=== PATIENT | male | born 1965 | race Caucasian/White ===

== ENCOUNTER 2017-08-26 06:57 | Emergency (ER) | payer OTHER ==
[~2017-08-26] VITALS: Ht 175.3 cm; Wt 136.5 kg
[~2017-08-26 06:57] MED LIST: AMLO5TAB96 PO; CYCL-36 PO; LISI40TA PO; LORC10TA PO; MEDR4PAK3 PO
[2017-08-26 07:00] VITALS: BP 162/92; PULSE 66; RESP 12; TEMP 98.7; O2SAT 95
[2017-08-26] MEDS ORDERED: LIDOCAINE 2%/EPINEPHrine 1:100,000 20ML MDV NERV BLOCK ONE (07:45)
--- NOTE | 2017-08-26 08:17 | PD ---
HPI Chief Complaint: Lump, Cyst, Hernia Time Seen by Provider: 07:33 Travel History International Travel<30 days: No Contact w/Intl Traveler<30days: No Traveled to known affect area: No History of Present Illness HPI 51-year-old male presents to emergency Department with tender erythematous draining cyst of the upper central back for the past several days. Patient has history of sebaceous cysts in the past. She denies fever, chills , or other symptoms. His pain is currently 8 out of 10. It has been draining some purulent bloody drainage. He is allergic to penicillin. [facility] Past Medical History High Cholesterol: Yes Diminished Hearing: No Hypertension: Yes Past Surgical History Other Surgery: Yes (SEPTOPLASTY? FOR SLEEP APNEA) Social History Alcohol Use: Yes (OCCASIONALLY BUT RARE) Tobacco Use: No Substance Use: No Allergies-Medications (Allergen,Severity, Reaction): Coded Allergies: penicillin G (Unverified Allergy, Severe, RASH, HIVES, 07/03/17) Reported Meds & Prescriptions Reported Meds & Active Scripts Active Medrol Dosepak (Methylprednisolone) 4 Mg Richy 4 Mg PO DIRECTED TAKE DIRECTED Flexeril (Cyclobenzaprine HCl) 10 Mg Tab 10 Mg PO TID Lorcet 10/650 (Acetaminophen/Hydrocodone Bitart) Tab 0.5-1 Tab PO Q4-6H PRN PAIN FOR PAIN Reported Norvasc (Amlodipine Besylate) 5 Mg Tab 5 Mg PO DAILY Prinivil (Lisinopril) 40 Mg Tab 40 Mg PO DAILY Review of Systems Except as stated in HPI: all other systems reviewed are Neg General / Constitutional: No: Fever Eyes: No: Visual changes HENT: No: Headaches Cardiovascular: No: Chest Pain or Discomfort Respiratory: No: Shortness of Breath Gastrointestinal: No: Abdominal Pain Genitourinary: No: Dysuria Musculoskeletal: No: Pain Skin: No Rash Neurologic: No: Weakness Psychiatric: No: Depression Endocrine: No: Polydipsia Hematologic/Lymphatic: No: Easy Bruising Physical Exam Narrative GENERAL: The patient. No acute distress. SKIN: Warm and dry. Patient as well as-sized erythematous raised cyst to the upper middle back with active purulent drainage. There is induration but no streaking. HEAD: Atraumatic. Normocephalic. EYES: Pupils equal and round. No scleral icterus. No injection or drainage. ENT: No nasal bleeding or discharge. Mucous membranes pink and moist. Pharynx clear. Airway is patent NECK: Trachea midline. Supple nontender. CARDIOVASCULAR: Regular rate and rhythm. RESPIRATORY: No accessory muscle use. Clear to auscultation. Breath sounds equal bilaterally. MUSCULOSKELETAL: Extremities without clubbing, cyanosis, or edema. No obvious deformities. NEUROLOGICAL: Awake and alert. No obvious cranial nerve deficits. Motor grossly within normal limits. Five out of 5 muscle strength in the arms and legs. Normal speech. PSYCHIATRIC: Appropriate mood and affect; insight and judgment normal. Data Data Last Documented VS Vital Signs Date Time Temp Pulse Resp B/P (MAP) Pulse Ox O2 Delivery O2 Flow Rate FiO2 08/26/17 07:00 98.7 66 12 162/92 (115) 95 Orders Orders Lidocai-Epi 2%-1:100,000 Inj (Xylocaine- (08/26/17 07:45) MDM Medical Decision Making Medical Screen Exam Complete: Yes Emergency Medical Condition: Yes Differential Diagnosis Cellulitis. Sebaceous cyst. Abscess. Narrative Course I&D of abscess is performed. Packing is placed. Wound care is discussed the patient's return and 48 hours for packing removal. No antibiotics are felt warranted at this time. Patient can return sooner with any worsening symptoms. Diagnosis Primary Impression: Sebaceous cyst Additional Impression: Abscess Referrals: Primary Care Physician Patient Instructions: Abscess Incision and Drainage (DC), Cyst (ED), General Instructions Additional Instructions: I&D of abscess is performed. Packing is placed. Wound care is discussed the patient's return and 48 hours for packing removal. No antibiotics are felt warranted at this time. Patient can return sooner with any worsening symptoms. Med/Other Pt SpecificInfo: Prescription(s) given Disposition: DISCHARGE HOME Condition: Stable Remy Quiles Aug 26, 2017 07:36
== END 2017-08-26 08:04 | disposition home or self-care (01) ==
LOC: NEPK 06:57
DX: L72.3 Sebaceous cyst (principal); L02.212 Cutaneous abscess of back [any part, except buttock and flank]; I10 Essential (primary) hypertension; E78.00 Pure hypercholesterolemia, unspecified
CPT/HCPCS: 10061

== ENCOUNTER 2017-08-28 11:08 | Emergency (ER) | payer OTHER ==
[~2017-08-28] VITALS: Ht 175.3 cm; Wt 140.0 kg
[2017-08-28 11:09] VITALS: BP 190/103; PULSE 67; RESP 16; TEMP 97.9; O2SAT 96
[2017-08-28] MEDS ORDERED: CLIN1CAP5 PO (12:01)
--- NOTE | 2017-08-28 12:01 | PD ---
HPI Chief Complaint: Wound/Suture/Staple Re-Check Time Seen by Provider: 11:53 Travel History International Travel<30 days: No Contact w/Intl Traveler<30days: No Traveled to known affect area: No History of Present Illness HPI 51-year-old male presents to emergency department requesting abscess packing removal. Packing was placed on Sunday. Denies fever, vomiting. Says he was not given antibiotics. He been taking Tylenol for pain. Reports history of multiple abscesses to his back in the past. Says he's been told he has a sweat gland problem. Symptoms are mild in severity. Has allergies to penicillin. History of hypertension and says he forgot to take his blood pressure medication this morning. Denies headache, chest pain, shortness of breath, abdominal pain, vomiting, change in vision. Patient at the [facility]. Has no medical complaints. No other modifying factors or associated signs and symptoms. PFSH Past Medical History High Cholesterol: Yes Diminished Hearing: No Hypertension: Yes Past Surgical History Other Surgery: Yes (SEPTOPLASTY? FOR SLEEP APNEA) Social History Alcohol Use: Yes (OCCASIONALLY BUT RARE) Tobacco Use: No Substance Use: No Allergies-Medications (Allergen,Severity, Reaction): Coded Allergies: penicillin G (Unverified Allergy, Severe, RASH, HIVES, 08/28/17) Reported Meds & Prescriptions Reported Meds & Active Scripts Active Clindamycin (Clindamycin HCl) 150 Mg Cap 300 Mg PO Q6H 10 Days Medrol Dosepak (Methylprednisolone) 4 Mg Richy 4 Mg PO DIRECTED TAKE DIRECTED Flexeril (Cyclobenzaprine HCl) 10 Mg Tab 10 Mg PO TID Lorcet 10/650 (Acetaminophen/Hydrocodone Bitart) Tab 0.5-1 Tab PO Q4-6H PRN PAIN FOR PAIN Reported Norvasc (Amlodipine Besylate) 5 Mg Tab 5 Mg PO DAILY Prinivil 40 mg (Lisinopril) 40 Mg Tab 40 Mg PO DAILY Review of Systems Except as stated in HPI: all other systems reviewed are Neg Physical Exam Narrative GENERAL: Well-nourished, well-developed male patient, in no acute distress; afebrile, nontoxic-appearing SKIN: There is an indurated area to the mid upper back which measures about 1.5 cm in diameter; previously incised and drained with iodoform packing intact; minimal amount purulent Drainage. There is a zone of inflammation around it but no lymphangitis. HEAD: Atraumatic. Normocephalic. EYES: Pupils equal and round. No scleral icterus. No injection or drainage. ENT: Mucosa pink and moist. Airway patent. NECK: Trachea midline. CARDIOVASCULAR: Regular rate. RESPIRATORY: No accessory muscle use. GASTROINTESTINAL: Obese. MUSCULOSKELETAL: No obvious deformities. No clubbing. No cyanosis. No edema. NEUROLOGICAL: Awake and alert. Oriented 3. No obvious cranial nerve deficits. Motor grossly within normal limits. Normal speech. PSYCHIATRIC: Appropriate mood and affect; insight and judgment normal. Data Data Last Documented VS Vital Signs Date Time Temp Pulse Resp B/P (MAP) Pulse Ox O2 Delivery O2 Flow Rate FiO2 08/28/17 11:09 97.9 67 16 190/103 (132) 96 Room Air Orders Orders Ed Discharge Order (08/28/17 12:01) Wound Culture And Gram Stain (08/28/17 12:01) MDM Medical Decision Making Medical Screen Exam Complete: Yes Emergency Medical Condition: Yes Medical Record Reviewed: Yes Differential Diagnosis Encounter for abscess packing removal, wound recheck, medical clearance Narrative Course 51-year-old female presents for encounter for abscess packing removal. Pack removed. Patient tolerated well. The patient was seen on Sunday for incision and drainage of sebaceous cyst and was not placed on antibiotics and a wound culture was not done. I will obtain a wound culture and place the patient on antibiotics. Patient has history of hypertension and forgot to take his blood pressure medication before leaving the house this morning. His blood pressure is elevated in the ER and he is asymptomatic. He verbalizes he will take his blood pressure medication upon arriving home. Clindamycin prescribed for home. Instructed patient to follow up with primary care provider. Patient verbalizes understanding and agreement with treatment plan. Patient is medically cleared and stable for discharge. Discussed reasons to return to the emergency department. Patient agrees with treatment plan. The patients vital signs are stable and the patient is stable for outpatient follow-up and treatment. Patient discharged home, stable and in no acute distress. Diagnosis Primary Impression: Encounter for abscess packing removal Referrals: Community Service Director Primary Care Physician Patient Instructions: Abscess (ED), Abscess Follow-up (ED), General Instructions Additional Instructions: Complete full course of antibiotics Warm compresses to the affected area Keep area clean and dry Ibuprofen or Tylenol as directed and as needed for pain and inflammation Follow-up with primary care provider Return to emergency department immediately with worsening of symptoms Med/Other Pt SpecificInfo: Prescription(s) given Scripts Clindamycin (Clindamycin) 150 Mg Cap 300 MG PO Q6H for Infection for 10 Days, #80 CAP 0 Refills Prov: Junie Mcpherson 08/28/17 Disposition: 01 DISCHARGE HOME Condition: Stable Junie Mcpherson Aug 28, 2017 12:01
[2017-08-28 12:06] VITALS: BP 188/94
== END 2017-08-28 12:41 | disposition home or self-care (01) ==
LOC: NEPK 11:08
DX: L02.212 Cutaneous abscess of back [any part, except buttock and flank] (principal); B95.7 Other staphylococcus as the cause of diseases classified elsewhere; B96.89 Other specified bacterial agents as the cause of diseases classified elsewhere; I10 Essential (primary) hypertension; Z48.01 Encounter for change or removal of surgical wound dressing
CPT/HCPCS: 87070; 87077; 87186; 99281

== ENCOUNTER 2017-09-11 08:14 | Emergency (ER) | payer OTHER ==
[~2017-09-11 08:14] MED LIST changes: +CLIN1CAP5 PO
[2017-09-11 08:18] VITALS: BP 175/81; PULSE 59; RESP 16; TEMP 97.8; O2SAT 95
[2017-09-11] MEDS ORDERED: AMLO5TAB2 PO (08:44)
[2017-09-11] MEDS ORDERED: SIMV5TAB3 PO (08:44)
[2017-09-11] MEDS ORDERED: LISI40TA PO (08:44)
--- NOTE | 2017-09-11 08:56 | PD ---
HPI Chief Complaint: Pain: Acute or Chronic Time Seen by Provider: 08:49 Travel History International Travel<30 days: No Contact w/Intl Traveler<30days: No Traveled to known affect area: No History of Present Illness HPI 51-year-old male presents to the emergency department complaint of left knee pain since yesterday after his knee just gave out while he was walking. He did not fall. Denies paresthesias, loss of sensation to the affected extremity. Reports decreased range of motion of the left knee. Is unable to ambulate on the affected extremity. Denies fever, vomiting. Has taken a leftover hydrocodone last night for pain. Took ibuprofen this morning for pain. Has been using crutches for support. Has tried icing the knee. Pain is aggravated with extension of the knee, movement and ambulation. Pain is to the lateral, medial, posterior aspect. Describes pain as an intense pain. Rates the pain 9/ 10. Is a patient of the ID clinic. Allergies to penicillin. Has no other medical complaints. No other modifying factors or associated signs and symptoms. History Past Medical Histgory Tetanus Vaccination: > 5 Years Social History Alcohol Use: Yes (OCCASIONALLY BUT RARE) Tobacco Use: No Allergies-Medications (Allergen,Severity, Reaction): Coded Allergies: penicillin G (Unverified Allergy, Severe, RASH, HIVES, 08/28/17) Reported Meds & Prescriptions Reported Meds & Active Scripts Active Clindamycin (Clindamycin HCl) 150 Mg Cap 300 Mg PO Q6H 10 Days Reported Lisinopril 40 Mg Tab 40 Mg PO DAILY Simvastatin 5 Mg Tab 5 Mg PO DAILY Amlodipine (Amlodipine Besylate) 5 Mg Tab 5 Mg PO DAILY Review of Systems Except as stated in HPI: all other systems reviewed are Neg Physical Exam Narrative GENERAL: Well-nourished, well-developed male patient, in no acute distress; afebrile, nontoxic-appearing SKIN: Warm and dry. HEAD: Atraumatic. Normocephalic. EYES: Pupils equal and round. No scleral icterus. No injection or drainage. ENT: Mucosa pink and moist. Airway patent. NECK: Trachea midline. CARDIOVASCULAR: Regular rate. RESPIRATORY: No accessory muscle use. GASTROINTESTINAL: Obese. MUSCULOSKELETAL: Left knee mildly edematous, nonerythematous, and without ecchymosis; full range of motion and flexion to 90; decreased active extension ; point tenderness to the lateral, medial, posterior aspect; joint stable with negative drawer test; no obvious deformity. Left Lower extremity is supple and non-tense with 2+ pedal pulse and sensory intact and without erythema or edema. Unable to assess ambulation. No cyanosis. No clubbing. No edema. NEUROLOGICAL: Awake and alert. Oriented 3. No obvious cranial nerve deficits. Motor grossly within normal limits. Normal speech. PSYCHIATRIC: Appropriate mood and affect; insight and judgment normal. Data Data Last Documented VS Vital Signs Date Time Temp Pulse Resp B/P (MAP) Pulse Ox O2 Delivery O2 Flow Rate FiO2 09/11/17 08:18 97.8 59 16 175/81 (112) 95 MDM Medical Screen Exam Complete: Yes Emergency Medical Condition: No Differential Diagnosis Knee sprain, ligament tear, meniscal tear, less likely fracture or dislocation Narrative Course 51-year-old male with left knee pain after his knee gave out yesterday while walking. Denies falling. I offered to x-ray the knee, but the patient is requesting an MRI, and declined the x-ray at this time. I do not feel an x-ray is necessary, as I do not suspect fracture or dislocation, but it was offered to the patient. She has crutches for support. Instructed patient to use knee brace for support. Vital signs are stable and the patient is stable for outpatient follow-up and treatment. The patient has no urgent or emergent medical complaints. There is no emergent or urgent medical need at this time. I instructed the patient to follow up with their primary care provider. A medical screening exam was performed: At the time of evaluation the presenting medical condition was determined not to be of an emergent nature. The patient was given the option of receiving additional care, but declined. Patient was given options for additional community resources from which to obtain care. The Patient Has Been advised to seek medical attention for their presenting complaint. The patient has been advised to return to the ER at any time if an emergent condition develops. Primary Impression: Encounter for medical screening examination Condition: Stable Junie Mcpherson Sep 11, 2017 08:56
== END 2017-09-11 09:25 | disposition left against medical advice (07) ==
LOC: NEPK 08:14
DX: M25.562 Pain in left knee (principal); Z79.899 Other long term (current) drug therapy; Z88.0 Allergy status to penicillin
CPT/HCPCS: 99281